=== PATIENT | male | born 1955 | race Caucasian/White ===

== ENCOUNTER 2019-05-19 18:23 | Emergency (ER) | payer BC, SELFPAY ==
--- NOTE | 2019-05-19 18:29 | ED.LOWEXIN ---
HPI - Extremity Injury (Lower) General Chief Complaint: Wound/Laceration Stated Complaint: caught left shine with chunk of wood,wound Time Seen by Provider: 05/19/19 18:26 Source: patient Mode of arrival: ambulatory Limitations: no limitations History of Present Illness HPI Narrative: 63-year-old male nonsmoker with benign medical history presents with a chief complaint of an accidental injury to his left anterior das. Patient was chopping wood when a log kicked back and hit him in the das causing an irregular skin tear to his anterior das. He will need his tetanus updated today. He is able to ambulate without difficulty and denies other injury. MD complaint: leg injury Type of Injury: blunt Place: street/outdoors Severity: mild Relieving factors: nothing Exacerbating factors: movement Context: direct blow Other symptoms: none Related Data Previous Rx's Medication Instructions Recorded cephalexin [Keflex] 500 mg PO QID 7 Days #28 cap 05/19/19 Allergies Allergy/AdvReac Type Severity Reaction Status Date / Time No Known Drug Allergies Allergy Verified 05/19/19 18:32 Review of Systems Constitutional Denies chills, Denies fever(s), Denies lethargy and Denies weakness Eyes Denies change in vision, Denies eye discharge, Denies irritation and Denies loss of vision ENT Ears, Nose, Mouth, and Throat: Denies change in voice, Denies neck pain and Denies sore throat Cardiovascular Denies chest pain, Denies irregular heart rhythm, Denies lightheadedness, Denies palpitations, Denies dyspnea, Denies dyspnea on exertion and Denies orthopnea Respiratory Denies cough, Denies dyspnea, Denies dyspnea on exertion and Denies wheezing Gastrointestinal Gastrointestinal: Denies abdominal pain, Denies change in bowel habits, Denies diarrhea, Denies nausea and Denies vomiting Genitourinary Denies hematuria, Denies flank pain, Denies urinary incontinence and Denies urinary urgency Musculoskeletal Denies neck pain Integumentary/Breasts Denies pruritus, Denies erythema, Denies rash and Reports wounds Neurologic Denies confusion, Denies loss of vision and Denies weakness Psychiatric Denies anxiety, Denies confusion, Denies depression, Denies homicidal ideation and Denies suicidal ideation Endocrine Denies palpitations Hematologic/Lymphatic Denies easy bruising Allergic/Immunologic Denies wheezing [facility] Social History Smoking Status: Never smoker Social History Smoking Status: Never smoker Exam Narrative Exam Narrative: GEN: AOx3 and in mild distress EYES: Pupils are equal, round, and reactive to light and accommodation. Extraoccular muscles are intact bilaterally. There is no subconjunctival hemorrhage or exudate. CHEST: Lungs are clear to auscultation bilaterally and free of wheezes, rales, or rhonchi. Heart rate is regular rhythm, there are no murmurs, clicks, rubs, or gallops. There is no chest wall tenderness. ABD: Abdomen is soft and nontender. There is no guarding or rebound. Bowel sounds are normal in all 4 quadrants. There is no mass or organomegaly. EXT: Full painless ROM of all extremities with no loss of sensation or strength. SKIN: 7 cm irregular flap laceration with some exposed subQfat Initial Vital Signs Initial Vital Signs: Vital Signs Temperature 97.9 F 05/19/19 18:31 Pulse Rate 77 05/19/19 18:31 Respiratory Rate 16 05/19/19 18:31 Blood Pressure 134/75 05/19/19 18:31 Pulse Oximetry 97 05/19/19 18:31 Procedures Laceration Repair Laceration 1: Site: lower extremity Side (If applicable): left Description: flap Depth: simple, single layer Local Anesthetic: lidocaine 1% and with epi Amount of anesthesia used (mL): 6 Pre-repair: wound explored, irrigated extensively and deep structures intact Skin layer closed with: nylon Size (cm): 4-0 Number of sutures: 8 Technique: simple, interrupted and horizontal mattress Course Orders Ordered: Discontinued Medications Diphtheria/Tetanus/Acell Pertussis (Adacel) 0.5 ml IM .ONCE ONE Stop: 05/19/19 18:41 Last Admin: 05/19/19 18:55 Dose: 0.5 ml Discharge Plan Departure Patient Disposition: Home Clinical Impression: Laceration Discharge Date/Time: 05/19/19 19:40 Interventions: ED Discharge Assessment Last Done: 05/19/19 19:40 Instructions: DI for Laceration Repair Activity Restrictions/Additional Instructions: Please keep the wound clean and dry to the best of your ability. Please monitor for signs of infection such as redness to the skin or increasing pain. Have the sutures removed by your doctor in about 7 days. If you are unable to get into your doctor, we would be happy to remove the sutures in that same timeframe. Prescriptions: New cephalexin [Keflex] 500 mg capsule 500 mg PO QID 7 Days Qty: 28 RF: 0
[2019-05-19 18:31] VITALS: BP 134/75; PULSE 77; RESP 16; TEMP 36.6; O2SAT 97
[2019-05-19] MEDS: TET,DIPH,PERTUSS(ACELL),VAC/PF 0.5 ML SYRINGE IM (18:55)
[2019-05-19 19:40] VITALS: BP 133/89; PULSE 83; RESP 16; O2SAT 100
== END 2019-05-19 19:40 | disposition home or self-care (01) ==
PROVIDERS: Emergency Provider Emergency Medicine
DX: S81.812A Laceration without foreign body, left lower leg, initial encounter (principal); W22.8XXA Striking against or struck by other objects, initial encounter; Z23 Encounter for immunization
CPT/HCPCS: 12002; 90471; 99283; 90715